=== PATIENT | female | born 1970 | race African-American/Black ===

== ENCOUNTER → 2017-02-24 | Outpatient (CLI) | payer MEDICARE ==
[~2017-02-24] MED LIST: ATOR10TA60 PO; CARI350T PO; CARV12.52 PO; CYAN10005 PO; DICL50TA4 PO; DICY20TA3 PO; ERGO500012 PO; FLUT1DIS IH; GABA600T2 PO; HYDR-2672 PO; LEVO175T2 PO; METF10002 PO; MULT-208 PO; OXYB15TA4 PO; PHEN37.53 PO; SUMA50TA3 PO; TOPI50TA4 PO
== END | disposition home or self-care (01) ==
LOC: PCVCCLINIC 14:24
PROVIDERS: ATTEND Internal Medicine
DX: R07.9 Chest pain, unspecified (principal); I10 Essential (primary) hypertension; E11.9 Type 2 diabetes mellitus without complications; E66.9 Obesity, unspecified; E78.5 Hyperlipidemia, unspecified
CPT/HCPCS: 80061; 93005; G0463

== ENCOUNTER → 2018-07-11 | Outpatient (CLI) | payer MEDICARE ==
[~2018-07-11] MED LIST changes: -ERGO500012 PO; +ERGO500027 PO; -HYDR-2672 PO; +HYDR-2766 PO; -METF10002 PO; +METF10007 PO; -TOPI50TA4 PO; +TOPI50TA8 PO
== END | disposition home or self-care (01) ==
LOC: PCVCCLINIC 13:45
PROVIDERS: ATTEND Internal Medicine Cardiovascular Disease
DX: I10 Essential (primary) hypertension (principal); E78.5 Hyperlipidemia, unspecified
CPT/HCPCS: 80061

== ENCOUNTER → 2019-05-09 | Outpatient (CLI) | payer MEDICARE ==
[~2019-05-09] MED LIST changes: +CARV12.511 PO; -CARV12.52 PO; -GABA600T2 PO; +GABA600T7 PO; -HYDR-2766 PO; +HYDR-2769 PO
--- NOTE | 2019-05-21 09:35 | SLEEP ---
DATE OF STUDY: 05/10/2019 OBJECTIVE: The patient is a 48-year-old female with a previous diagnosis of obstructive sleep apnea. She is needing a new CPAP machine and certification for the same. Height 64 inches, weight 300 pounds. [place] sleep score 14. Body mass index 51.5. INTERPRETATION: The apnea-hypopnea index is 25.1 events per hour sleep with a minimum oxygen saturation of 74%. The heart rate average is 73.4 beats per minute, highest heart rate 101 beats per minute. IMPRESSION: Abnormal home polysomnogram showing significant obstructive sleep apnea and hypopnea. RECOMMENDATIONS: I will attempt to arrange for a new CPAP machine for the patient using variable CPAP and will return in to the lab for in-hospital CPAP titration if she is no better. Thank you for letting us help with the patient's care. JASPREET CORRALES MD DR: ANISHA/suraj JOB#: [id number] / [id number] JASPREET Gupta MD, STEPHANIE MD
== END | disposition home or self-care (01) ==
LOC: RT 12:43
PROVIDERS: ATTEND Psychiatry & Neurology Neurology with Special Qualifications in Child Neurology
DX: G47.33 Obstructive sleep apnea (adult) (pediatric) (principal)
CPT/HCPCS: G0399